=== PATIENT | female | born 1960 | race Caucasian/White ===

== ENCOUNTER 2022-01-13 02:40 | Emergency (ER) | payer OTHER ==
[~2022-01-13] VITALS: Ht 170.2 cm; Wt 67.1 kg
[2022-01-13 04:03] LABS: Basophils # (auto) 0 10 ^3/uL (0-0.2); Basophils % (auto) 0.2 % (0.0-2.0); Eosinophils # (auto) 0.1 10 ^3/uL (0-0.8); Eosinophils % (auto) 0.5 % (0.0-7.0); Hematocrit 43.2 % (36.0-46.0); Hemoglobin 14.7 g/dL (12.2-16.2); Lymphocytes # (auto) 0.7 10 ^3/uL (0.4-5.4); Lymphocytes % (auto) 5.3 % (10.0-50.0); Mean Corpuscular Hemoglobin 30.9 pg (28.0-32.0); Monocytes # (auto) 0.7 10 ^3/uL (0-1.3); Neutrophils # (auto) 12.1 10 ^3/uL (1.6-8.6); Nucleated Red Blood Cells % 0.1 %; Red Blood Cells 4.75 10^6/uL (4.0-5.20); Red Cell Distribution Width 12.5 % (11.8-14.3); White Blood Cell 13.6 10^3/uL (4.4-10.8)
[2022-01-13 04:11] LABS: Urine Bacteria MOD /hpf (None Seen); Urine Blood 3+ /uL (Negative); Urine WBC 165 /hpf (0 - 5); Urine WBC Clumps PRESENT /hpf (None Seen)
[2022-01-13 04:23] LABS: Calcium 8.6 mg/dL (8.5-10.1)
[2022-01-13 04:27] LABS: Albumin 3.9 g/dL (3.4-5.0); BUN/Creatinine Ratio 23.4
[2022-01-13 04:29] LABS: Bilirubin, Total 0.3 mg/dL (0.2-1.0); Total Protein 6.7 g/dL (6.4-8.2)
[2022-01-13] MEDS ORDERED: NITR-87 PO (07:20)
[2022-01-13] MEDS ORDERED: SODIUM CHLORIDE 0.9% 1,000 ML IV ONE ×2 (07:30)
[2022-01-13] MEDS ORDERED: cefTRIAXone 1GM/50ML D5W 50 ML IV ONE (07:30)
[2022-01-13 10:26] VITALS: BP 100/61
== END 2022-01-13 11:28 | disposition home or self-care (01) ==
LOC: EDBD 02:40 → ER 02:40
DX: N39.0 Urinary tract infection, site not specified (principal)
CPT/HCPCS: 36415; 74176; 80053; 81001; 81025; 85025; 96365; 99285; J0696; J7030